=== PATIENT | male | born 1960 ===

== ENCOUNTER → 2019-07-17 | Outpatient (CLI) | payer OTHER ==
[~2019-07-17] MED LIST: DICMIS50EC PO; METF500 PO
[2019-07-19 17:09] LABS: COTININE Negative ng/mL (Cutoff=300)
== END | disposition home or self-care (01) ==
LOC: LAB SHORT 12:05 → LAB 12:05
PROVIDERS: Orthopaedic Surgery
DX: Z01.812 Encounter for preprocedural laboratory examination (principal); M17.11 Unilateral primary osteoarthritis, right knee

== ENCOUNTER 2019-08-27 09:12 | Day surgery (SDC) | payer OTHER ==
[~2019-08-27] VITALS: Ht 177.8 cm; Wt 135.0 kg
[~2019-08-27 09:12] MED LIST changes: +ASPI81CH PO; +ATOR20 PO; +DICLOFENAC-MIS1 EAC5 PO; +OMEP20ER PO; +Prinivil10 MG PO
--- NOTE | 2019-08-27 11:25 | NUR ---
History, Chart, Medications and Allergies reviewed before start of procedure. Patient confirms NPO status and agrees with scheduled surgery. Patient reports completing Chlorhexadine shower X2 prior to admission to hospital.
--- NOTE | 2019-08-27 11:26 | NUR ---
KNEE HIGH OTTO HOSE AND CALF PAS TO LLE.
--- NOTE | 2019-08-27 11:33 | NUR ---
REPORT GIVEN TO DAVID NEELY RN.
--- NOTE | 2019-08-27 13:18 | NUR ---
UP TO BR TO VOID.
--- NOTE | 2019-08-27 13:26 | NUR ---
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
--- NOTE | 2019-08-27 14:03 | NUR ---
1400- TIME OUT FOR SPINAL ANESTHESIA WITH DR ACUÑA AT [facility] BEDSIDE. 2L O2/NC INTACT. PATIENT IN SITTING POSITION ON EDGE OF BED. 1412- DR ACUÑA FINSIHED ATTEMPTING SPINAL ANESTHESIA.
--- NOTE | 2019-08-27 15:03 | NUR ---
08/27/19 1503 Carlin Chase SPINAL ATTEMTED-NOT SUCCESSFUL-SWITCHED TO GENERAL
--- NOTE | 2019-08-27 17:15 | NUR ---
pt arrived to unit on bed, a/o x 4, pleasant/cooperative, rates pain at 10/10, no grimace, eyes closed and quiet. post op VS commenced, analagesia provided per sagrario
--- NOTE | 2019-08-27 18:37 | NUR ---
pt requesting to stand, which normally is joint program protocol; pt reports to this RN that Dr Dumont told he and that during the surgery today a ligament was torn by the robot. This RN was not told this in report from the VENE[facility] PATCHER. Verified with Dr Dumont that a partial deep MCL tear did occur during the surgery. Orders are: restrict pt to bathroom priviledges tonight, no ambulating in hallway. tomorrow morning before breakfast office staff will bring pt immobilizer as a precautionary measure for the next 30 days while ambulating
--- NOTE | 2019-08-28 04:51 | NUR ---
SHIFT SUMMARY PATIENT UP TO THE BR WITH WALKER, PATIENT IS VERY COORDINATED WITH THE WALKER. HE HAS HAD INTERMITTENT TINGLING IN HIS RT LEG AND FEELS THAT WHEN HE DANGLES HIS LEG, THE BLOOD RUSHES BACK IN AND HE HAS PINS AND NEEDLE SENSATIONS. CIRCULATION IS UNCHANGED. AQUACEL IS INTACT, WITH NO DRAINAGE. NIKHIL WRAP IS OFF PER PT REQUEST. OTTO ALLRED AND SCD'S T/O NIGHT. PATIENT IS CURRENTLY IN THE CHAIR. NO OTHER ACUTE CHANGES.
[2019-08-28 05:55] LABS: BASOPHILS ABSOLUTE AUTO 0.02 K/mm3 (0.00-0.23); BASOPHILS PERCENT AUTO 0 % (0-2); EOSINOPHILS ABSOLUTE AUTO 0.03 K/mm3 (0.00-0.68); EOSINOPHILS PERCENT AUTO 0 % (0-6); Hematocrit 43.6 % (37.0-53.0); Hemoglobin 14.6 g/dL (13.5-17.5); IMMATURE GRAN ABSOLUTE AUTO 0.04 K/mm3 (0.00-0.10); IMMATURE GRAN PERCENT AUTO 0 % (0-1); LYMPHOCYTES ABSOLUTE AUTO 2.29 K/mm3 (0.84-5.20); LYMPHOCYTES PERCENT AUTO 16 % (21-46); MONOCYTES PERCENT AUTO 8 % (4-13); Mean Corpuscular HGB 31.7 pg (26.0-34.0); Mean Corpuscular HGB Conc 33.5 g/dL (31.5-36.5); Mean Corpuscular Volume 95 fL (80-100); Mean Platelet Volume 9.7 fL (9.1-12.4); NEUTROPHILS ABSOLUTE AUTO 10.51 K/mm3 (1.96-9.15); NEUTROPHILS PERCENT AUTO 75 % (41-73); Platelet Count 222 K/mm3 (150-400); RDW Coefficient Variation 12.9 % (11.7-14.2); RDW Standard Deviation 44.8 fL (35.1-46.3); White Blood Cell Count 13.99 K/mm3 (4.00-11.30)
[2019-08-28 06:13] LABS: Anion Gap 6 mmol/L (6-16); Blood Urea Nitrogen 17 mg/dL (8-24); Bun/Creatinine Ratio 28.2 (12.0-20.0); CO2, Blood 26 mmol/L (21-32); Calcium, Blood 8.6 mg/dL (8.5-10.1); Chloride, Blood 102 mmol/L (98-108); Glomerular Filtration Rate >60 (60-); Glucose, Blood 195 mg/dL (70-99); Sodium, Blood 134 mmol/L (136-145)
[2019-08-28] MEDS ORDERED: Percocet 5-3251 EACH PO (11:03)
[2019-08-28] MEDS ORDERED: XARELTO10 MG PO (11:05)
--- NOTE | 2019-08-28 12:55 | NUR ---
DISCHARGE PT ESCORTED OUT VIA W/C. SCRIPTS, DRSGS, AND POLAR PACK GIVEN. CLEARED THERAPY. PAIN WELL MANAGED.
== END 2019-08-28 13:18 | disposition home or self-care (01) ==
LOC: ORSCMMR 09:12 → ORD 10:45 → SURS 17:07 → ORSCMMR 17:07 → SURS 08-28 13:18 → ORSCMMR 08-28 13:18
PROVIDERS: Orthopaedic Surgery
PROC: 0SRC0JA Replacement of Right Knee Joint with Synthetic Substitute, Uncemented, Open Approach (ICD-10-PCS; principal; 2019-08-27 10:45)
PROC: 8E0Y0CZ Robotic Assisted Procedure of Lower Extremity, Open Approach (ICD-10-PCS; principal; 2019-08-27 10:45)
DX: M17.11 Unilateral primary osteoarthritis, right knee (principal); I10 Essential (primary) hypertension; E11.9 Type 2 diabetes mellitus without complications; K21.9 Gastro-esophageal reflux disease without esophagitis; E66.01 Morbid (severe) obesity due to excess calories; Z68.41 Body mass index [BMI] 40.0-44.9, adult; Z79.84 Long term (current) use of oral hypoglycemic drugs; Z79.82 Long term (current) use of aspirin; Z79.899 Other long term (current) drug therapy
CPT/HCPCS: 27447; S2900; 36415; 73560-RT; 80048; 82947; 85025; 88300; 97110; 97161; A9270-GY; C1776; J0171; J0330; J0690; J0735; J1100; J1170; J1815; J1885; J2250; J2370; J2405; J2704; J2795; J3010; J7120

== ENCOUNTER 2025-01-07 09:30 | Day surgery (SDC) | payer OTHER ==
[~2025-01-07] VITALS: Ht 177.8 cm; Wt 117.8 kg
[~2025-01-07 09:30] MED LIST changes: +ASPI81CH; +Balanced Salt Epinephrine Irrigation Solution 500 mL IR SCH; +DICLOFENAC35 MG; +JARDIANCE10 MG; +Moxifloxacin HCL 0.5 MG/0.1 ML 0.4MLSYR RIGHTEYE SCH; +Ondansetron 4 MG SoluTab MM PRN; +PHENYLEPHRINE\\TROPICAMIDE\\TETRACAINE OPHTHALMIC DILATING SOLN RIGHTEYE PRN; +Percocet 5-3251 EACH PO; +Povidone-Iodine 450 DROP/30 ML Solution ONE; +Povidone-Iodine 450 DROP/30 ML Solution RIGHTEYE SCH; +Tetracaine HCl/Pf 0.5% Opth Soln 4 ml ONE; +XARELTO10 MG PO
--- NOTE | 2025-01-07 11:16 | NUR ---
01/07/25 1116 Evelina Fox 1111 BP:134/91 HR:53 O2:100% RESP:16
[2025-01-07 11:41] VITALS: BP 135/77
== END 2025-01-07 11:46 | disposition home or self-care (01) ==
LOC: ORSCSDS 09:30
PROVIDERS: Student in an Organized Health Care Education/Training Program
PROC: 08RJ3JZ Replacement of Right Lens with Synthetic Substitute, Percutaneous Approach (ICD-10-PCS; principal; 2025-01-07 11:00)
DX: E11.36 Type 2 diabetes mellitus with diabetic cataract (principal); H25.811 Combined forms of age-related cataract, right eye; Z96.1 Presence of intraocular lens; Z87.891 Personal history of nicotine dependence; I10 Essential (primary) hypertension; E78.5 Hyperlipidemia, unspecified; Z79.82 Long term (current) use of aspirin; Z79.84 Long term (current) use of oral hypoglycemic drugs; Z79.899 Other long term (current) drug therapy
CPT/HCPCS: A9270; V2632